=== PATIENT | female | born 1975 | race Caucasian/White ===

== ENCOUNTER 2020-11-15 16:33 | Emergency (ER) | payer OTHER ==
[~2020-11-15] VITALS: Ht 154.9 cm; Wt 63.5 kg
[2020-11-15] MEDS ORDERED: LISINOPRIL5 MG PO (16:43)
[2020-11-15] MEDS ORDERED: HYDROCODON-ACE1 EAC7 PO (16:43)
[2020-11-15] MEDS ORDERED: XANAX 0.5 MG0.5 MG PO (16:44)
[2020-11-15] MEDS ORDERED: ZOLOFT25 MG PO (16:44)
[2020-11-15] MEDS ORDERED: ASA81BEC PO (16:44)
[2020-11-15] MEDS ORDERED: FLEXERIL PO (16:45)
[2020-11-15] MEDS ORDERED: RIZATRIPTAN5 MG PO (16:45)
[2020-11-15 17:23] LABS: URINE BILIRUBIN NEGATIVE (Negative); URINE BLOOD 2+ (Negative); URINE CLARITY CLEAR; URINE COLOR YELLOW; URINE GLUCOSE-RANDOM NEGATIVE (Negative); URINE KETONES NEGATIVE (Negative); URINE LEUKOCYTES-REFLEX NEGATIVE (Negative); URINE NITRITE-REFLEX NEGATIVE (Negative); URINE PROTEIN NEGATIVE (Negative); URINE SPECIFIC GRAVITY 1.015 (1.005-1.030); URINE UROBILINOGEN 0.2 E.U./dl (0.2-1.0)
[2020-11-15 17:39] LABS: MUCUS None Seen strn/LPF (None Seen); SQUAMOUS >10 Many /LPF (0-3); URINE RBC 3-10 Few /HPF (0-2)
[2020-11-15 17:40] LABS: AMORPHOUS PHOSPHATES Moderate /LPF (None Seen); BACTERIA-REFLEX 1-9 Few /HPF (None Seen); CASTS None Seen /LPF (None Seen); URINE WBC-REFLEX None Seen /HPF (0-5)
[2020-11-15] MEDS ORDERED: MACRODANTIN100 MG PO (17:51)
[2020-11-15 18:12] VITALS: BP 121/70
== END 2020-11-15 18:13 | disposition home or self-care (01) ==
LOC: M.ERS 16:33
PROVIDERS: Nurse Practitioner Psychiatric/Mental Health
DX: G43.009 Migraine without aura, not intractable, without status migrainosus (principal); R31.9 Hematuria, unspecified; I10 Essential (primary) hypertension; Z79.82 Long term (current) use of aspirin; Z79.899 Other long term (current) drug therapy

== ENCOUNTER 2020-11-18 16:53 | Emergency (ER) | payer OTHER ==
[~2020-11-18] VITALS: Ht 154.9 cm; Wt 65.8 kg
[~2020-11-18 16:53] MED LIST: ASA81BEC PO; FLEXERIL PO; HYDROCODON-ACE1 EAC7 PO; LISINOPRIL5 MG PO; MACRODANTIN100 MG PO; RIZATRIPTAN5 MG PO; XANAX 0.5 MG0.5 MG PO; ZOLOFT25 MG PO
[2020-11-18] MEDS ORDERED: AUGMENTIN 875-1 EACH PO (17:22)
[2020-11-18 17:49] VITALS: BP 165/95
== END 2020-11-18 17:50 | disposition home or self-care (01) ==
LOC: M.ERS 16:53
DX: L03.012 Cellulitis of left finger (principal); I10 Essential (primary) hypertension; G43.909 Migraine, unspecified, not intractable, without status migrainosus; Z79.899 Other long term (current) drug therapy; Z79.82 Long term (current) use of aspirin

== ENCOUNTER 2020-11-22 16:57 | Emergency (ER) | payer OTHER ==
[~2020-11-22] VITALS: Ht 154.9 cm; Wt 65.8 kg
[~2020-11-22 16:57] MED LIST changes: +AUGMENTIN 875-1 EACH PO
[2020-11-22 17:15] VITALS: BP 127/86
[2020-11-22] MEDS ORDERED: REGLAN 10 MG TA10 MG PO (17:56)
[2020-11-22] MEDS ORDERED: IBUPROFEN 800800 M1 PO (17:56)
[2020-11-22] MEDS ORDERED: CLARITIN10 MG PO (17:56)
== END 2020-11-22 18:14 | disposition home or self-care (01) ==
LOC: M.ERS 16:57
DX: G43.909 Migraine, unspecified, not intractable, without status migrainosus (principal); H83.8X3 Other specified diseases of inner ear, bilateral; I10 Essential (primary) hypertension; E78.5 Hyperlipidemia, unspecified; Z79.82 Long term (current) use of aspirin; Z79.899 Other long term (current) drug therapy; Z88.1 Allergy status to other antibiotic agents; Z20.828 Contact with and (suspected) exposure to other viral communicable diseases

== ENCOUNTER 2020-12-22 14:05 | Emergency (ER) | payer OTHER ==
[~2020-12-22] VITALS: Ht 154.9 cm; Wt 63.0 kg
[~2020-12-22 14:05] MED LIST changes: +CLARITIN10 MG PO; +IBUPROFEN 800800 M1 PO; +REGLAN 10 MG TA10 MG PO
[2020-12-22 14:29] LABS: ABSOLUTE BASOPHILS 0.1 thou/uL (0.0-0.2); ABSOLUTE EOSINOPHILS 0.2 thou/uL (0.0-0.7); ABSOLUTE LYMPHOCYTES 2.8 thou/uL (0.8-5.3); ABSOLUTE MONOCYTES 0.7 thou/uL (0.0-1.2); BASOPHILS 0.8 %; EOSINOPHILS 2.7 %; HEMATOCRIT 43.2 % (37.0-47.0); HEMOGLOBIN 14.7 gm/dL (12.0-15.0); LYMPHOCYTES 35.5 %; MCV 91.1 fL (80.0-100.0); MONOCYTES 8.8 %; MPV 8.6 fl. (7.2-11.1); NUCLEATED RBCS 0 /100WBC; PLATELET COUNT* 251 thou/uL (150-400); POLYS 52.2 %; RBC 4.74 mil/uL (4.20-5.00); RDW-CV 12.4 % (10.5-14.5); WBC 7.8 thou/uL (4.0-11.0)
[2020-12-22 14:40] LABS: APTT 27.9 Seconds (25.0-31.3)
[2020-12-22 14:43] LABS: CALCIUM 9.3 mg/dL (8.5-10.1); CREATININE 0.8 mg/dL (0.6-1.3); POTASSIUM 4.3 mmol/L (3.5-5.1)
[2020-12-22 15:00] LABS: ALBUMIN 3.8 g/dL (3.4-5.0); CK-MB MASS 0.8 ng/mL (<0.5-3.6); TOTAL BILIRUBIN 0.3 mg/dL (<0.1-1.0)
[2020-12-22 15:29] VITALS: BP 114/78
--- NOTE | 2020-12-22 16:33 | EKG ---
[place] [address] ELECTROCARDIOGRAM REPORT Name: DIVYA KING Room: [facility]#: [id number] Admission: 12/22/20 Attend Phys: Discharge: 12/22/20 Date of : 71 Date of Service: 12/22/20 1411 Report #: [id number] THIS REPORT FOR: //name// [facility] ED Test Date: 2020-12-22 Test Time: 14:11:03 Pat Name: DIVYA KING Department: Room: Gender: Tax Manager Public: : 1975 Requested By: Byron Lima Order Number: [id number] MD: Ky Khalil Measurements Intervals [place] Rate: 73 P: 66 AR: 153 QRS: 53 QRSD: 91 T: 62 QT: 382 QTc: 421 Interpretive Statements Sinus rhythm Compared to ECG 04/16/2009 22:38:47 No significant changes Electronically Signed On 12-22-2020 16:33:33 HOLLOW HANDLE KNIFE ASSEMBLER by Ky Khalil [email or web address] <ELECTRONICALLY SIGNED> By: Ky Khalil MD, [facility] 12/22/20 1633 [id number] 141 Ky Khalil MD, FAC /EPI
== END 2020-12-22 15:30 | disposition home or self-care (01) ==
LOC: M.ERS 14:05
PROVIDERS: Family Medicine
DX: R07.89 Other chest pain (principal); I10 Essential (primary) hypertension; G43.909 Migraine, unspecified, not intractable, without status migrainosus; E78.00 Pure hypercholesterolemia, unspecified; Z88.1 Allergy status to other antibiotic agents

== ENCOUNTER 2021-08-25 17:36 | Emergency (ER) | payer OTHER ==
[~2021-08-25] VITALS: Ht 154.9 cm; Wt 63.5 kg
[2021-08-25 19:15] VITALS: BP 134/88
== END 2021-08-25 18:58 | disposition home or self-care (01) ==
LOC: M.ERS 17:36
DX: M54.9 Dorsalgia, unspecified (principal); Z53.21 Procedure and treatment not carried out due to patient leaving prior to being seen by health care provider

== ENCOUNTER 2021-09-04 10:14 | Emergency (ER) | payer OTHER ==
[~2021-09-04] VITALS: Ht 154.9 cm; Wt 63.5 kg
--- NOTE | ~2021-09-04 | EMS ---
[facility] [address] [place] [address] EMS Patient Care Report Name: DIVYA KING Room: [facility]#: [id number] Admission: 09/04/21 Attend Phys: Discharge: Date of : 71 Report #: [id number] THIS REPORT FOR: //name// Report Transmitted: 09/04/2021 10:34 EMS Care Summary [facility] [place] Incident [id number] @ 09/04/2021 09:36 Incident Location [address] [place] [address] Patient DIVYA KING Female, 45 Years 1975 Patient Address [address] [place] [address] Patient History Hypertension (HTN),,Dysthymic disorder,Anxiety disorder, unspecified, Patient Allergies , Patient Medications Aspirin, Zoloft, Lisinopril, Lovastatin, Alprazolam, Fish Oil, Famotidine, Chief Complaint Nausea Disposition Transported No Lights/[place]chenry Dispatch Reason Sick Person Transported To [facility] Narrative 320 DISPATCHED NONEMERGENT TO THIS RESIDENCE FOR A 45F WITH NAUSEA AND VOMITING. 320 ARRIVED ON SCENE WITHOUT INCIDENT. PT WALKED FROM THE FRONT PORCH TO THE AMBULANCE WITH FIRE. FIRE REPORTED TO EMS THAT THE PT WOKE UP THIS MORNING VOMITING AND IT WAS DARK. FIRE REPORTED THERE WAS A COFFEE GROUND [facility] [address] [place] [address] EMS Patient Care Report Name: DIVYA KING Room: [facility]#: [id number] Admission: 09/04/21 Attend Phys: Discharge: Date of : 71 Report #: [id number] APPEARANCE TO THE VOMIT ON THE PORCH. PT STATES SHE HAS A HISTORY OF ESOPHAGEAL BLEEDING. PT CLIMBS INTO THE AMBULANCE AND SITS ON THE COT. PT IS SECURED VIA SEATBELTS AND SIDERAILS. PT IS VERY EMOTIONALLY UPSET. PT STATES SHE WAS DRINKING LAST NIGHT BECAUSE SHE HAS HAD A "ROUGH TWO WEEKS." PT STATES "MY MOM JUST GOT DIAGNOSED WITH CANCER, A FAMILY FRIEND , MY BEST FRIEND'S MOM , I AM JUST GOING THROUGH IT." PT DENIED SI AND HI AND JUST STATED SHE WAS UPSET. TREATMENTS AND INTERVENTIONS WERE EXECUTED. PT WAS RETCHING CONSTANTLY. PT DID VOMIT A SMALL AMOUNT IN AN EMESIS BAG THAT WAS VERY DARK AND HAD COFFEE GROUND APPEARANCE. AFTER ADMINISTRATION OF ZOFRAN, PT'S RETCHING CEASED. PT WAS ABLE TO TALK EASIER AND ANSWER QUESTIONS NOW. TRANSPORT BEGAN AT THIS TIME. ENROUTE TO THE HOSPITAL, PT REPORTED HER MEDICAL HISTORY AND DEMOGRAPHIC INFORMATION. PT REPORTED THE PAIN IN HER THROAT WAS CONSTANT AND STARTED AFTER MULTIPLE EPISODES OF VOMITING. PT REPORTED THE PAIN ITCHY. PT DENIED CHEST PAIN, SOA, HEART BURN, AND ANY OTHER SYMPTOMS. DURING TRANSPORT, PT'S ANXIETY AND EMOTIONAL UPSET DECREASED WHILE TALKING TO EMS. WHILE ENROUTE TO THE HOSPITAL, PT WAS MONITORED AND VITALS WERE REASSESSED. PT'S CONDITION WAS IMPROVED UPON ARRIVAL AT [facility]. AFTER ARRIVING AT [facility] WITHOUT INCIDENT, PT WAS UNLOADED FROM THE AMBULANCE AND WHEELED TO ER 7. PT WALKED FROM THE COT TO THE BED WITHOUT ASSISTANCE. PT REPORT AND LABWORK WAS GIVEN TO THE RN. RN SIGNED ACCEPTING THE PT. TRANSFER OF CARE OFFICIAL AT THIS TIME. 05/14 ITCHY BACK OF THROAT STARTED AFTER VOMITING, Initial Vitals @09:44Pain: 05/14, @09:57Pain: 05/14, @09:55SpO2: 100, @10:00SpO2: 99, @10:04SpO2: 99, @10:09SpO2: 97, @09:51 @09:49P: 90,R: 20,BP: 152/104, @10:00P: 82,R: 18,BP: 148/102, @10:09P: 78,R: 16,BP: 115/90, @09:49GCS: 15, @10:00GCS: 15, @10:09GCS: 15, @09:44 @09:51Glucose: 133, Assessments @09:44MENTAL:SKIN:HEENT:LUNG SOUNDS:ABDOMEN:PELVIS//GI:EXTREMITIES:PULSE:NEURO: [place] [address] EMS Patient Care Report Name: DIVYA KING Room: [facility]#: [id number] Admission: 09/04/21 Attend Phys: Discharge: Date of : 71 Report #: [id number] Procedures @09:52 Ondansetron - 4.000 Milligrams (mg) - Intravenous (IV) Response: Improved @09:51 IV Therapy - cc () Site: Antecubital-Left Response: UnchangedSucceeded @09:51 Blood Draw - cc () Response: UnchangedSucceeded @09:51 3-Lead ECG Response: UnchangedSucceeded Timeline 05:00,Call Received 09:34,Dispatch Notified 09:34,Psap Call 09:36,Dispatched 09:36,En Route 09:43,On Scene 09:44,At Patient 09:44,BP: / M,PULSE: ,RR: R,SPO2: Ox,ETCO2: ,BG: ,PAIN: 7,GCS: , 09:44,BP: / M,PULSE: ,RR: R,SPO2: Ox,ETCO2: ,BG: ,PAIN: ,GCS: , 09:49,BP: 152/104 M,PULSE: 90,RR: 20 R,SPO2: Ox,ETCO2: ,BG: ,PAIN: ,GCS: , 09:49,BP: / M,PULSE: ,RR: R,SPO2: Ox,ETCO2: ,BG: ,PAIN: ,GCS: 15, 09:51,IV Therapy - cc Site: Antecubital-Left,Response: UnchangedSucceeded, 09:51,Blood Draw - cc Site: ,Response: UnchangedSucceeded, 09:51,3-Lead ECG,Response: UnchangedSucceeded, 09:51,BP: / M,PULSE: ,RR: R,SPO2: Ox,ETCO2: ,BG: ,PAIN: ,GCS: , 09:51,BP: / M,PULSE: ,RR: R,SPO2: Ox,ETCO2: ,B,PAIN: ,GCS: , 09:52,Ondansetron - 4.000 Milligrams (mg) - Intravenous (IV),Response: Improved 09:55,BP: / M,PULSE: ,RR: R,SPO2: 100 Ox,ETCO2: ,BG: ,PAIN: ,GCS: , 09:57,Depart Scene 09:57,BP: / M,PULSE: ,RR: R,SPO2: Ox,ETCO2: ,BG: ,PAIN: 7,GCS: , 10:00,BP: / M,PULSE: ,RR: R,SPO2: 99 Ox,ETCO2: ,BG: ,PAIN: ,GCS: , 10:00,BP: 148/102 M,PULSE: 82,RR: 18 R,SPO2: Ox,ETCO2: ,BG: ,PAIN: ,GCS: , 10:00,BP: / M,PULSE: ,RR: R,SPO2: Ox,ETCO2: ,BG: ,PAIN: ,GCS: 15, 10:04,BP: / M,PULSE: ,RR: R,SPO2: 99 Ox,ETCO2: ,BG: ,PAIN: ,GCS: , 10:09,BP: / M,PULSE: ,RR: R,SPO2: 97 Ox,ETCO2: ,BG: ,PAIN: ,GCS: , 10:09,BP: 115/90 M,PULSE: 78,RR: 16 R,SPO2: Ox,ETCO2: ,BG: ,PAIN: ,GCS: , 10:09,BP: / M,PULSE: ,RR: R,SPO2: Ox,ETCO2: ,BG: ,PAIN: ,GCS: 15, 10:11,At Destination 10:28,Call Closed Disclaimer v1.1 Copyright 2020 [employer] This EMS Care Summary contains data elements from the applicable legal record (which may be displayed differently). It is designed to provide pertinent information for the following purposes: continuity of care, clinical quality, and state data reporting. The complete legal record is available to ED staff and administrators of the receiving hospital in ES's Patient Tracker. All data is provided "as is."
[2021-09-04] MEDS ORDERED: LOVASTATIN 20 M20 MG PO (10:34)
[2021-09-04] MEDS ORDERED: ZOLOFT100 MG PO (10:35)
[2021-09-04] MEDS ORDERED: PEPCID40 MG PO (10:36)
[2021-09-04] MEDS ORDERED: FISH OIL 1,0001 EAC9 PO (10:36)
[2021-09-04 10:55] LABS: ABSOLUTE BASOPHILS 0.1 thou/uL (0.0-0.2); ABSOLUTE EOSINOPHILS 0.3 thou/uL (0.0-0.7); ABSOLUTE LYMPHOCYTES 2.1 thou/uL (0.8-5.3); ABSOLUTE NEUTROPHILS 16.1 thou/uL (1.6-8.1); BASOPHILS 0.4 %; EOSINOPHILS 1.3 %; HEMATOCRIT 46.8 % (37.0-47.0); HEMOGLOBIN 15.7 gm/dL (12.0-15.0); MCH 31.2 pg (26.0-34.0); MCHC 33.6 g/dL (28.0-37.0); MCV 92.9 fL (80.0-100.0); MONOCYTES 5.1 %; MPV 9.3 fl. (7.2-11.1); NUCLEATED RBCS 0 /100WBC; PLATELET COUNT* 307 thou/uL (150-400); POLYS 82.2 %; RBC 5.04 mil/uL (4.20-5.00); WBC 19.5 thou/uL (4.0-11.0)
[2021-09-04 10:59] LABS: CALCIUM 9.5 mg/dL (8.5-10.1); CREATININE 0.9 mg/dL (0.6-1.3)
[2021-09-04 11:04] LABS: ALBUMIN 4.3 g/dL (3.4-5.0); TOTAL BILIRUBIN 0.5 mg/dL (<0.1-1.0); TOTAL PROTEIN 8.4 g/dL (6.4-8.2)
[2021-09-04 11:46] LABS: URINE BILIRUBIN NEGATIVE (Negative); URINE BLOOD TRACE (Negative); URINE COLOR YELLOW; URINE GLUCOSE-RANDOM NEGATIVE (Negative); URINE KETONES NEGATIVE (Negative); URINE LEUKOCYTES-REFLEX NEGATIVE (Negative); URINE NITRITE-REFLEX NEGATIVE (Negative); URINE PROTEIN 2+ (Negative); URINE UROBILINOGEN 0.2 E.U./dl (0.2-1.0)
[2021-09-04 11:48] LABS: BACTERIA-REFLEX None Seen /HPF (None Seen); CASTS None Seen /LPF (None Seen); CRYSTALS None Seen /LPF (None Seen); MUCUS 0-3 Light strn/LPF (None Seen); SQUAMOUS 4-10 Moderate /LPF (0-3); URINE CLARITY HAZY; URINE RBC None Seen /HPF (0-2); URINE WBC-REFLEX 0-5 Rare /HPF (0-5)
[2021-09-04] MEDS ORDERED: ZOFRAN ODT4 MG PO (12:15)
[2021-09-04] MEDS ORDERED: CARAFATE 1 GM TA1 GM PO (12:18)
[2021-09-04 12:35] VITALS: BP 136/87
== END 2021-09-04 12:32 | disposition home or self-care (01) ==
LOC: M.ERS 10:14
PROVIDERS: Nurse Practitioner Psychiatric/Mental Health
DX: R11.2 Nausea with vomiting, unspecified (principal); R19.7 Diarrhea, unspecified; R10.13 Epigastric pain; I10 Essential (primary) hypertension; G43.909 Migraine, unspecified, not intractable, without status migrainosus; E78.00 Pure hypercholesterolemia, unspecified; F41.9 Anxiety disorder, unspecified; F32.9 Major depressive disorder, single episode, unspecified; F17.210 Nicotine dependence, cigarettes, uncomplicated; Z79.899 Other long term (current) drug therapy; Z79.82 Long term (current) use of aspirin; Z88.1 Allergy status to other antibiotic agents

== ENCOUNTER 2021-09-25 11:49 | Emergency (ER) | payer OTHER ==
[~2021-09-25] VITALS: Ht 154.9 cm; Wt 63.5 kg
[~2021-09-25 11:49] MED LIST changes: +CARAFATE 1 GM TA1 GM PO; +FISH OIL 1,0001 EAC9 PO; +LOVASTATIN 20 M20 MG PO; +PEPCID40 MG PO; +ZOFRAN ODT4 MG PO; +ZOLOFT100 MG PO
[2021-09-25] MEDS ORDERED: MEDROLDOSEPACK PO (14:29)
[2021-09-25] MEDS ORDERED: VENTOLIN HFA 1818 GM INH (14:29)
[2021-09-25 15:01] LABS: INFLUENZA A ANTIGEN Negative (Negative); INFLUENZA B ANTIGEN Negative (Negative)
[2021-09-25 15:35] VITALS: BP 134/72
--- NOTE | 2021-09-26 09:10 | EKG ---
[place] [address] ELECTROCARDIOGRAM REPORT Name: DIVYA KING Room: [facility]#: [id number] Admission: 09/25/21 Attend Phys: Discharge: 09/25/21 Date of : 71 Date of Service: 09/25/21 1354 Report #: [id number] THIS REPORT FOR: //name// [facility] ED Test Date: 2021-09-25 Test Time: 13:54:52 Pat Name: DIVYA KING Department: Room: Gender: Inspector Open Die: [facility] : 1975 Requested By: Ivett Rose Order Number: [id number] : Ky Khalil Measurements Intervals [place] Rate: 56 P: 60 IA: 152 QRS: 41 QRSD: 92 T: 47 QT: 436 QTc: 421 Interpretive Statements Sinus rhythm Atrial premature complex Compared to ECG 12/22/2020 14:11:03 Atrial premature complex(es) now present Electronically Signed On 09-26-2021 9:10:07 GERONTOLOGY AIDE by yK Khalil [email or web address] <ELECTRONICALLY SIGNED> By: Ky Khalil MD, [facility] 09/26/21 0910 1354 1354 Ky Khalil MD, [facility] /EPI
== END 2021-09-25 15:35 | disposition home or self-care (01) ==
LOC: M.ERS 11:49
PROVIDERS: Nurse Practitioner Family
DX: J20.9 Acute bronchitis, unspecified (principal); Z20.822 Contact with and (suspected) exposure to COVID-19; I10 Essential (primary) hypertension; F41.9 Anxiety disorder, unspecified; F32.9 Major depressive disorder, single episode, unspecified; G43.909 Migraine, unspecified, not intractable, without status migrainosus; E78.00 Pure hypercholesterolemia, unspecified; F17.210 Nicotine dependence, cigarettes, uncomplicated; Z79.899 Other long term (current) drug therapy; Z79.82 Long term (current) use of aspirin; Z88.1 Allergy status to other antibiotic agents

== ENCOUNTER 2021-09-30 19:29 | Emergency (ER) | payer OTHER ==
[~2021-09-30] VITALS: Ht 154.9 cm; Wt 65.3 kg
[~2021-09-30 19:29] MED LIST changes: +MEDROLDOSEPACK PO; +VENTOLIN HFA 1818 GM INH
[2021-09-30] MEDS ORDERED: NAPROSYN500 M1 PO (19:43)
[2021-09-30] MEDS ORDERED: FLEXERIL PO (19:45)
[2021-09-30] MEDS ORDERED: VITAMIN D350 MC4 PO (19:46)
[2021-09-30] MEDS ORDERED: RIZATRIPTAN10 M1 PO (19:46)
[2021-09-30 20:08] LABS: ABSOLUTE BASOPHILS 0.1 thou/uL (0.0-0.2); ABSOLUTE EOSINOPHILS 0.5 thou/uL (0.0-0.7); ABSOLUTE LYMPHOCYTES 3.6 thou/uL (0.8-5.3); ABSOLUTE NEUTROPHILS 5.6 thou/uL (1.6-8.1); BASOPHILS 0.9 %; EOSINOPHILS 4.7 %; HEMATOCRIT 42.7 % (37.0-47.0); HEMOGLOBIN 14.5 gm/dL (12.0-15.0); LYMPHOCYTES 33.8 %; MCH 31.7 pg (26.0-34.0); MCV 93.4 fL (80.0-100.0); MONOCYTES 9.2 %; NUCLEATED RBCS 0 /100WBC; PLATELET COUNT* 258 thou/uL (150-400); POLYS 51.4 %; RBC 4.57 mil/uL (4.20-5.00); RDW-CV 13.1 % (10.5-14.5); WBC 10.8 thou/uL (4.0-11.0)
[2021-09-30 20:28] LABS: CALCIUM 9.2 mg/dL (8.5-10.1); CREATININE 0.8 mg/dL (0.6-1.3); POTASSIUM 3.6 mmol/L (3.5-5.1)
[2021-09-30 20:39] LABS: ALBUMIN 3.6 g/dL (3.4-5.0); TOTAL BILIRUBIN 0.3 mg/dL (<0.1-1.0); TOTAL PROTEIN 7.1 g/dL (6.4-8.2)
[2021-09-30 21:06] LABS: URINE BILIRUBIN NEGATIVE (Negative); URINE BLOOD 1+ (Negative); URINE CLARITY CLEAR; URINE COLOR YELLOW; URINE GLUCOSE-RANDOM NEGATIVE (Negative); URINE KETONES NEGATIVE (Negative); URINE LEUKOCYTES NEGATIVE (Negative); URINE NITRITE NEGATIVE (Negative); URINE PROTEIN NEGATIVE (Negative); URINE SPECIFIC GRAVITY 1.025 (1.005-1.030)
[2021-09-30 21:13] VITALS: BP 122/80
[2021-09-30 21:13] LABS: BACTERIA 1-9 Few /HPF (None Seen); CASTS None Seen /LPF (None Seen); CRYSTALS None Seen /LPF (None Seen); MUCUS 0-3 Light strn/LPF (None Seen); SQUAMOUS 4-10 Moderate /LPF (0-3); URINE RBC 3-10 Few /HPF (0-2); URINE WBC 0-5 Rare /HPF (0-5)
--- NOTE | 2021-10-01 10:19 | EKG ---
[place] [address] ELECTROCARDIOGRAM REPORT Name: DIVYA KING Room: [facility]#: [id number] Admission: 09/30/21 Attend Phys: Discharge: 09/30/21 Date of : 71 Date of Service: 09/30/211929 Report #: [id number] THIS REPORT FOR: //name// [facility] ED Test Date: 2021-09-30 Test Time: 19:30:34 Pat Name: DIVYA KING Department: Room: Gender: Drug Abuse Program Coordinator: : 1975 Requested By: Rocco Dan Order Number: [id number] MD: Ky Khalil Measurements Intervals [place] Rate: 77 P: 65 [place]: 151 QRS: 59 QRSD: 84 T: 42 QT: 374 QTc: 424 Interpretive Statements Sinus rhythm Compared to ECG 09/25/2021 13:54:52 Atrial premature complex(es) no longer present Electronically Signed On 10-01-2021 10:19:37 LICENSED NUCLEAR CONTROL ROOM OPERATOR by Ky Khalil [email or web address] <ELECTRONICALLY SIGNED> By: Ky Khalil MD, FACC 10/01/21 1019 29 29 Ky Khalil MD, [facility] /EPI
== END 2021-09-30 21:16 | disposition home or self-care (01) ==
LOC: M.ERS 19:29
PROVIDERS: Physician Assistant
DX: R07.89 Other chest pain (principal); I10 Essential (primary) hypertension; G43.909 Migraine, unspecified, not intractable, without status migrainosus; E78.00 Pure hypercholesterolemia, unspecified; F41.9 Anxiety disorder, unspecified; F32.9 Major depressive disorder, single episode, unspecified; F17.210 Nicotine dependence, cigarettes, uncomplicated; Z79.899 Other long term (current) drug therapy; Z79.82 Long term (current) use of aspirin; Z88.1 Allergy status to other antibiotic agents; Z88.8 Allergy status to other drugs, medicaments and biological substances